=== PATIENT | female | born 1950 | race Caucasian/White ===

== ENCOUNTER 2018-07-24 19:24 | Inpatient (IN) | payer OTHER, MEDICARE ==
[2018-07-24] MEDS ORDERED: ASPIRIN 325 MG TABLET PO ONE (19:39)
--- NOTE | 2018-07-24 19:40 | PDOC ---
Rapid Medical Evaluation Time Seen by Provider: 07/24/18 19:33 Medical Evaluation: Allergies Allergy/AdvReac Type Severity Reaction Status Date / Time No Known Allergies Allergy Verified 08/26/14 09:07 07/24/18 19:36 Pt presents for midsternal chest pain starting 15 minutes ago. Pt reports being less mobile d/t a boot on her foot. Exam: RRR, S1S2 present. no murmur; epigastric discomfort Orders: Labs, EKG, Aspirin, IV Pt to proceed to ED for further evaluation Discharge Disposition - Diagnosis Chest pain - Referrals - Patient Instructions - Post Discharge Activity
[2018-07-24 20:04] LABS: BASO % 0.5 % (0-2.0); HEMOGLOBIN 15.8 GM/dL (10.7-15.3); LYMPH % 32.4 % (8-40); MCH 32.8 pg (25.7-33.7); MCHC 34.3 g/dl (32.0-36.0); MEAN CELL VOLUME 95.5 fl (80-96); MEAN PLT VOLUME 10.5 fl (7.5-11.1); MONO % 7.5 % (3.8-10.2); NEUT % 56.6 % (42.8-82.8); PLATELET COUNT 179 K/MM3 (134-434); RBC 4.82 M/mm3 (3.60-5.2); RDW 13.6 % (11.6-15.6); WHITE BLOOD COUNT 7.2 K/mm3 (4.0-10.0)
[2018-07-24 20:15] LABS: INR 0.94 (0.83-1.09); PROTHROMBIN TIME (PATIENT) 11.1 SEC (9.7-13.0)
[2018-07-24] MEDS ORDERED: ASPIRIN 325 MG TABLET ONE (20:32)
--- NOTE | 2018-07-24 20:55 | PDOC ---
History of Present Illness - General Chief Complaint: Chest Pain Stated Complaint: CHEST PAIN Time Seen by Provider: 07/24/18 19:33 - History of Present Illness Initial Comments: 67 year old female with PMH of HLD and breast cancer (16 years in remission s/p radiation and lumpectomy, mammography negative one year prior) presenting with sudden onset central sharp chest pain, worse with movement, radiation to the left shoulder and co-presented with diaphoresis. The pain came on 30 minutes before the interview and had been improving by the time I interviewed her. She denies any nausea, vomiting, diarrhea, or other symptoms. 07/24/18 20:32 Past History - Past Medical History Allergies/Adverse Reactions: Allergies Allergy/AdvReac Type Severity Reaction Status Date / Time No Known Allergies Allergy Verified 08/26/14 09:07 Home Medications: Ambulatory Orders Atorvastatin Ca [Lipitor] 20 mg PO HS 07/09/13 Cancer: Yes (BREAST CA IN REMISSION OF 2001) - Surgical History Abdominal Surgery: Yes Appendectomy: Yes - Suicide/Smoking/Psychosocial Hx Smoking History: Never smoked Have you smoked in the past 12 months: No Hx Alcohol Use: Yes (Social) Drug/Substance Use Hx: No Substance Use Type: None Review of Systems - Review of Systems Constitutional: No: Chills, Diaphoresis, Fever, Loss of Appetite, Malaise HEENTM: No: Blurred Vision, Tearing, Recent change in vision Respiratory: No: Cough, Shortness of Breath, SOB with Exertion Cardiac (ROS): Yes: Chest Pain. No: Irregular Heart Rate, Lightheadedness ABD/GI: No: Diarrhea, Nausea : No: Dysuria, Discharge Musculoskeletal: No: Back Pain, Joint Pain Integumentary: No: Bruising, Change in Color Neurological: No: Headache, Numbness, Paresthesia Psychiatric: No: Anxiety, Depression, Stressors Endocrine: No: Flushing, Intolerance to Cold Hematologic/Lymphatic: No: Blood Clots, Easy Bleeding, Easy Bruising *Physical Exam - Vital Signs Last Vital Signs Temp Pulse Resp BP Pulse Ox 98.2 F 92 H 20 121/88 100 07/24/18 19:34 07/24/18 19:34 07/24/18 19:34 07/24/18 19:34 07/24/18 19:34 - Physical Exam General Appearance: Yes: Nourished, Appropriately Dressed. No: Apparent Distress HEENT: positive: EOMI, JEANE, Normal ENT Inspection, Normal Voice Neck: positive: Trachea midline, Normal Thyroid, Supple. negative: Tender, Rigid Respiratory/Chest: positive: Chest Tender, Lungs Clear, Normal Breath Sounds. negative: Respiratory Distress, Accessory Muscle Use Cardiovascular: positive: Regular Rhythm, Regular Rate Gastrointestinal/Abdominal: positive: Normal Bowel Sounds, Flat, Soft. negative : Tender Lymphatic: negative: Adenopathy, Tenderness Musculoskeletal: positive: Normal Inspection. negative: CVA Tenderness Extremity: positive: Normal Capillary Refill, Normal Inspection, Normal Range of Motion. negative: Tender Integumentary: positive: Normal Color, Dry, Warm Neurologic: positive: Fully Oriented, Alert, Normal Mood/Affect, Normal Response , Motor Strength 5/5 Moderate Sedation - Procedure Monitoring Vital Signs: Procedure Monitoring Vital Signs Temperature 98.2 F 07/24/18 19:34 Pulse Rate 92 H 07/24/18 19:34 Respiratory Rate 20 07/24/18 19:34 Blood Pressure 121/88 07/24/18 19:34 O2 Sat by Pulse Oximetry (%) 100 07/24/18 19:34 Heart Score/ECG Review - History History: Moderately suspicious - Electrocardiogram EKG: Normal - Age Age: >/= 65 - Risk Factors Risk Factors Heart Score: Yes Hx Hypercholesterolemia Based on the list above the patient has:: 1-2 risk factors - Troponin Troponin: </= normal limit - Score Heart Score - Total: 4 ED Treatment Course - LABORATORY CBC & Chemistry Diagram: 07/24/18 19:45 07/24/18 19:45 - ADDITIONAL ORDERS Additional order review: Laboratory Results 07/24/18 19:45 PT with INR 11.10 INR 0.94 07/24/18 19:45 RBC 4.82 MCV 95.5 MCHC 34.3 RDW 13.6 MPV 10.5 Neutrophils % 56.6 Lymphocytes % 32.4 Monocytes % 7.5 Eosinophils % 3.0 Basophils % 0.5 Medical Decision Making - Medical Decision Making 67 year odl with acute onset chest pain., Heart score of 4. EKG demonstrating rate 85, PR142, QRS 92, QTc 473, normal axis, no ST or T wave changes, troponin negative, CBC WNL, but chemistry pending. Given ASA and signed otu to Dr. Bacon pending admission. 07/24/18 22:34 *DC/Admit/Observation/Transfer Diagnosis at time of Disposition: Chest pain - Referrals Referrals: Alexandre Ford MD [Primary Care Provider] - - Patient Instructions - Post Discharge Activity
[2018-07-24 20:59] LABS: URINE APPEARANCE CLEAR; URINE BILIRUBIN NEGATIVE (<2.0 mg/dL); URINE COLOR STRAW; URINE GLUCOSE (UA) NEGATIVE (NEGATIVE); URINE KETONE NEGATIVE (NEGATIVE); URINE LEUK ESTERASE TRACE (NEGATIVE); URINE NITRITE NEGATIVE (NEGATIVE); URINE PROTEIN NEGATIVE (NEGATIVE); URINE UROBILINOGEN NEGATIVE mg/dL (0.2-1.0)
--- NOTE | 2018-07-24 22:23 | PDOC ---
*Physical Exam - Vital Signs Last Vital Signs Temp Pulse Resp BP Pulse Ox 98.2 F 79 20 141/78 100 07/24/18 19:34 07/24/18 21:03 07/24/18 21:03 07/24/18 21:03 07/24/18 21:03 ED Treatment Course - LABORATORY CBC & Chemistry Diagram: 07/24/18 19:45 07/24/18 19:45 - ADDITIONAL ORDERS Additional order review: Laboratory Results 07/24/18 07/24/18 07/24/18 20:51 19:45 19:45 PT with INR 11.10 INR 0.94 Sodium Cancelled Potassium Cancelled Chloride Cancelled Carbon Dioxide Cancelled Anion Gap Cancelled BUN Cancelled Creatinine Cancelled Creat Clearance w eGFR Cancelled Random Glucose Cancelled Calcium Cancelled Total Bilirubin Cancelled AST Cancelled ALT Cancelled Alkaline Phosphatase Cancelled Creatine Kinase Creatine Kinase Index CK-MB (CK-2) Troponin I Total Protein Cancelled Albumin Cancelled Lipase Urine Color Straw Urine Appearance Clear Urine pH 9.0 H Ur Specific [place] 1.010 Urine Protein Negative Urine Glucose (UA) Negative Urine Ketones Negative Urine Blood Negative Urine Nitrite Negative Urine Bilirubin Negative Urine Urobilinogen Negative Ur Leukocyte Esterase Trace Urine WBC (Auto) 5 Urine RBC (Auto) 1 07/24/18 07/24/18 19:40 19:40 PT with INR INR Sodium Potassium Chloride Carbon Dioxide Anion Gap BUN Creatinine Creat Clearance w eGFR Random Glucose Calcium Total Bilirubin AST ALT Alkaline Phosphatase Creatine Kinase 180 Creatine Kinase Index 0.6 CK-MB (CK-2) 1.2 Troponin I < 0.02 Total Protein Albumin Lipase 363 Urine Color Urine Appearance Urine pH Ur Specific [place] Urine Protein Urine Glucose (UA) Urine Ketones Urine Blood Urine Nitrite Urine Bilirubin Urine Urobilinogen Ur Leukocyte Esterase Urine WBC (Auto) Urine RBC (Auto) 07/24/18 19:45 RBC 4.82 MCV 95.5 MCHC 34.3 RDW 13.6 MPV 10.5 Neutrophils % 56.6 Lymphocytes % 32.4 Monocytes % 7.5 Eosinophils % 3.0 Basophils % 0.5 - Medications Given in the ED: ED Medications Discontinued Medications Generic Name Dose Route Start Last Admin Trade Name Freq PRN Reason Stop Dose Admin Aspirin 325 mg 07/24/18 19:39 07/24/18 20:00 Asa - PO 07/24/18 19:40 325 mg ONCE ONE Administration Medical Decision Making - Medical Decision Making 07/24/18 22:22 The patient was signed out to me by Dr. Duncan, day team. The patient is a 67F with a PMH of HLD who presents with acute onset CP concerning for NC. CMP hemolyzed. Will resend. PCP is Alexandre Ford. 07/24/18 23:[address] Guzman for obs tele admission. *DC/Admit/Observation/Transfer Diagnosis at time of Disposition: Chest pain Qualifiers: Chest pain type: unspecified Qualified Code(s): R07.9 - Chest pain, unspecified - Discharge Dispostion Condition at time of disposition: Guarded Decision to Admit order: Yes - Referrals Referrals: Alexandre Ford MD [Primary Care Provider] - - Patient Instructions - Post Discharge Activity
--- NOTE | 2018-07-24 22:33 | PDOC ---
Attending Attestation - HPI HPI: 07/24/18 22:35 The patient is a 67 year old female with a significant past medical history of hyperlipidemia and breast ca (remission est. 2002) who resents to the emergency department with chest pain for a few hours. The patient states that she began to experience a sudden onset of central chest pain about 30 minutes prior to arrival to the ED. she states that her chest pain radiates to her left shoulder. She denies any other symptoms or complaints. Documentation prepared by Bruce Locke, acting as medical technologist clinical for Kendy Guevara MD. <Bruce Locke - Last Filed: 07/24/18 22:35> - Resident Resident Name: Brittney Duncan - ED Attending Attestation I have performed the following: I have examined & evaluated the patient, The case was reviewed & discussed with the resident, I agree w/resident's findings & plan, Exceptions are as noted - Physicial Exam PE: 07/25/18 02:39 wnwd 67 yo female with chest pain,diaphoresis that resolved. The pain did radiate to her shoulder head ncat neck supple lungs cta b/l cvs [id number] abd soft,nontender ext no edema,no clubbing skin warm and dry no cva tenderness neuro axox3,no gross focal neuro deficits 07/25/18 02:40 - Medical Decision Making 07/25/18 02:41 imp chest pain,will admit for OBS tele r/o SC <Kendy Guevara - Last Filed: 07/25/18 02:42>
--- NOTE | 2018-07-24 23:00 | PN ---
Teaching Attending Note Name of Resident: Luis Guzman ATTENDING PHYSICIAN STATEMENT I saw and evaluated the patient. I reviewed the resident's note and discussed the case with the resident. I agree with the resident's findings and plan as documented. SUBJECTIVE: Patient is a 67 year old woman with a PMH of hyperlipidemia and breast ca ( remission est. 2001) who resents to the ER with chest pain for a few hours. The patient states that she began to experience a sudden onset of central chest pain about 30 minutes prior to arrival to the ED. she states that her chest pain radiates to her left shoulder. She denies nausea, vomiting, headache, dysuria or abdominal pain. OBJECTIVE: Alert Vital Signs Period Temp Pulse Resp BP Sys/[place] Pulse Ox Last 24 Hr 98.2 F 79-92 20-20 121-141/78-88 100-100 HEENT: No Jaundice, eye redness or discharge, PERRLA, EOMI. Normocephalic, atraumatic. External ears are normal and hearing is grossly intact. No nasal discharge. Neck: Supple, nontender. No palpable adenopathy or thyromegaly. No JVD Chest: Good effort. Clear to auscultation and percussion. Heart: Regular. No S3, rub or murmur Abdomen: Not distended, soft, nontender and no HSM. No rebound or guarding. Normoactive bowel sounds. Ext: Peripheral pulses intact. No leg edema. Skin: Warm and dry. No petechiae, rash or ecchymosis. Neuro: Alert. Oriented x3. CN 2-12 grossly intact. Sensation grossly intact in all four extremities and DTR are symmetric. Home Medications Medication Instructions Recorded Atorvastatin Ca [Lipitor] 20 mg PO HS 07/09/13 Abnormal Lab Results 07/24/18 07/24/18 19:45 20:51 Hgb 15.8 H Hct 46.0 H Urine pH 9.0 H ASSESSMENT AND PLAN: 1. Chest pain - Pain is atypical. No acute ST-T wave changes on CXR and initial troponin is negative. Will admit to telemetry to rule out ACS. Get CXR, fasting lipid profile and ECHO. Consult cardiology - patient reports a negative stress test 2 years ago but does not remember why stress test was done. 2. DVT prophylaxis - Lovenox 40 mg SQ q 24 hours. 3. Advance directives - Full code
--- NOTE | 2018-07-24 23:41 | HP ---
CHIEF COMPLAINT: Chest pain PCP: Dr. Logan Holt cards HISTORY OF PRESENT ILLNESS: The patient is a 67 yo f w/ PMH HLD, breast Ca who comes into the ed c/o a 1 day hx of chest pain. The patient states that she was painting her nails when she experienced an acute onset of sharp chest pain and pressure. This pressure was located in the center of her chest and did not radiate. This symptom was associated with diaphoresis and flushing. Patient denies any exacerbating factors and states that her ssx improved after she was given ASA in the ED. The pain is mildly reproducible on palpation. The patient has never had a similar episode in the past and has no other risk factors. Patient follows with Dr. Holt as an outpatient and has had both a stress test and an echo approx. 1-2 years ago, both of which were unremarkable per her. Patient denies left arm pain , SOB, palpitations, abdominal pain, fevers or chills. ER course was notable for: (1) trop negative x1 (2) EKG showing NSR (3) Recent Travel: none PAST MEDICAL HISTORY: Breast cancer s/p radiation and lumpectomy, 16 years in remission PAST SURGICAL HISTORY: Right lumpectomy appendectomy Social History: Smoking: denies Alcohol: socially Drugs: denies Family History: Mother from complications related to HTN Grandfather from [place], age unknown Allergies No Known Allergies Allergy (Verified 08/26/14 09:07) HOME MEDICATIONS: Home Medications Medication Instructions Recorded Atorvastatin Ca [Lipitor] 20 mg PO HS 07/09/13 REVIEW OF SYSTEMS CONSTITUTIONAL: Absent: fever, chills, diaphoresis, generalized weakness, malaise, loss of appetite, weight change HEENT: Absent: rhinorrhea, nasal congestion, throat pain, throat swelling, difficulty swallowing, mouth swelling, ear pain, eye pain, visual changes CARDIOVASCULAR: Absent: syncope, palpitations, irregular heart rate, lightheadedness, peripheral edema RESPIRATORY: Absent: cough, shortness of breath, dyspnea with exertion, orthopnea, wheezing, stridor, hemoptysis GASTROINTESTINAL: Absent: abdominal pain, abdominal distension, nausea, vomiting, diarrhea, constipation, melena, hematochezia GENITOURINARY: Absent: dysuria, frequency, urgency, hesitancy, hematuria, flank pain, genital pain MUSCULOSKELETAL: Absent: myalgia, arthralgia, joint swelling, back pain, neck pain SKIN: Absent: rash, itching, pallor HEMATOLOGIC/IMMUNOLOGIC: Absent: easy bleeding, easy bruising, lymphadenopathy, frequent infections ENDOCRINE: Absent: unexplained weight gain, unexplained weight loss, heat intolerance, cold intolerance NEUROLOGIC: Absent: headache, focal weakness or paresthesias, dizziness, unsteady gait, seizure, mental status changes, bladder or bowel incontinence PSYCHIATRIC: Absent: anxiety, depression, suicidal or homicidal ideation, hallucinations. PHYSICAL EXAMINATION Vital Signs - 24 hr 07/24/18 07/24/18 07/24/18 19:34 20:00 21:03 Temperature 98.2 F Pulse Rate 92 H Pulse Rate [ 79 Apical] Respiratory 20 20 Rate Blood Pressure 121/88 Blood Pressure 141/78 [Left Arm] O2 Sat by Pulse 100 100 100 Oximetry (%) 07/24/18 23:39 Temperature 98.1 F Pulse Rate Pulse Rate [ 87 Apical] Respiratory 20 Rate Blood Pressure Blood Pressure 138/72 [Left Arm] O2 Sat by Pulse 100 Oximetry (%) GENERAL: Awake, alert, and fully oriented, in no acute distress. HEAD: Normal with no signs of trauma. NECK: Normal range of motion, supple without lymphadenopathy, JVD, or masses. LUNGS: Breath sounds equal, clear to auscultation bilaterally. No wheezes, and no crackles. No accessory muscle use. HEART: Regular rate and rhythm, normal S1 and S2 without murmur, rub or gallop. ABDOMEN: Soft, nontender, not distended, normoactive bowel sounds, no guarding, no rebound, no masses. No hepatomegaly or splenomegaly. LOWER EXTREMITIES: 2+ pulses, warm, well-perfused. No calf tenderness. No peripheral edema. NEUROLOGICAL: Cranial nerves II-X intact. Normal speech. SKIN: Warm, dry, normal turgor, no rashes or lesions noted, normal capillary refill. Laboratory Results - last 24 hr 07/24/18 07/24/18 07/24/18 19:40 19:40 19:45 WBC 7.2 RBC 4.82 Hgb 15.8 H Hct 46.0 H MCV 95.5 MCH 32.8 MCHC 34.3 RDW 13.6 Plt Count 179 MPV 10.5 Absolute Neuts (auto) 4.1 Neutrophils % 56.6 Lymphocytes % 32.4 Monocytes % 7.5 Eosinophils % 3.0 Basophils % 0.5 Nucleated RBC % 0 PT with INR INR Sodium Potassium Chloride Carbon Dioxide Anion Gap BUN Creatinine Creat Clearance w eGFR Random Glucose Calcium Total Bilirubin AST ALT Alkaline Phosphatase Creatine Kinase 180 Creatine Kinase Index 0.6 CK-MB (CK-2) 1.2 Troponin I < 0.02 Total Protein Albumin Lipase 363 Urine Color Urine Appearance Urine pH Ur Specific [place] [employer] Urine Protein Urine Glucose (UA) Urine Ketones Urine Blood Urine Nitrite Urine Bilirubin Urine Urobilinogen Ur Leukocyte Esterase Urine WBC (Auto) Urine RBC (Auto) 07/24/18 07/24/18 07/24/18 19:45 19:45 20:51 WBC RBC Hgb Hct MCV MCH MCHC RDW Plt Count MPV Absolute Neuts (auto) Neutrophils % Lymphocytes % Monocytes % Eosinophils % Basophils % Nucleated RBC % PT with INR 11.10 INR 0.94 Sodium Cancelled Potassium Cancelled Chloride Cancelled Carbon Dioxide Cancelled Anion Gap Cancelled BUN Cancelled Creatinine Cancelled Creat Clearance w eGFR Cancelled Random Glucose Cancelled Calcium Cancelled Total Bilirubin Cancelled AST Cancelled ALT Cancelled Alkaline Phosphatase Cancelled Creatine Kinase Creatine Kinase Index CK-MB (CK-2) Troponin I Total Protein Cancelled Albumin Cancelled Lipase Urine Color Straw Urine Appearance Clear Urine pH 9.0 H Ur Specific [employer] 1.010 Urine Protein Negative Urine Glucose (UA) Negative Urine Ketones Negative Urine Blood Negative Urine Nitrite Negative Urine Bilirubin Negative Urine Urobilinogen Negative Ur Leukocyte Esterase Trace Urine WBC (Auto) 5 Urine RBC (Auto) 1 ASSESSMENT/PLAN: The patient is a 67 yo f w/ PMH Breast Ca and HLD who comes in c/o substernal chets pain for 1 day. #Chest pain possibly 2/2 muscular strain r/o ACS -Initial EKG, Trop negatie in ED -rpt trop q6h, rpt EKG w/ second trop -s/p ASA 325 in ED -fasting lipids in AM -Echo in AM -CXR to further eval pain #elevated BP possibly 2/2 pain/ stress of hospitalization vs HTN -monitor BP overnight and into the AM -will begin antihypertensives if BP continues to be elevated. #FEN -no fluids indicated -lytes WNL -sodium controlled, fat controlled diet #HLD -c/w home Lipitor 20 HS #Prophy -SCDs #Dispo -observe on telemetry to r/o ACS Visit type - Emergency Visit Emergency Visit: Yes ED Registration Date: 07/24/18 Care time: The patient presented to the Emergency Department on the above date and was hospitalized for further evaluation of their emergent condition. - New Patient This patient is new to me today: Yes Date on this admission: 07/25/18 - Critical Care Critical Care patient: No
[2018-07-24 23:55] LABS: ALBUMIN 3.4 g/dl (3.4-5.0); ALK PHOS 95 U/L (45-117); ANION GAP 6 MMOL/L (8-16); BILIRUBIN,TOTAL 0.5 mg/dL (0.2-1); BLOOD UREA NITROGEN 11 mg/dL (7-18); CALCIUM 8.5 mg/dL (8.5-10.1); CHLORIDE 106 mmol/L (98-107); CO2 30 mmol/L (21-32); CREATININE 0.7 mg/dL (0.55-1.3); GLUCOSE,RANDOM 123 mg/dL (74-106); POTASSIUM 3.5 mmol/L (3.5-5.1); SGOT/AST 20 U/L (15-37); SGPT/ALT 24 U/L (13-61); SODIUM 142 mmol/L (136-145); TOT PROT 6.4 g/dl (6.4-8.2)
[2018-07-25 01:00] VITALS: BMI 23.5
[2018-07-25] MEDS ORDERED: METOPROLOL TARTRATE 25 MG TABLET (FP) PO ONE (02:43)
[2018-07-25] MEDS ORDERED: ATORVASTATIN CA 40 MG TABLET (FP) PO ONE (02:44)
[2018-07-25] MEDS ORDERED: MELATONIN 5 MG TABLETS PO PRN (02:46)
[2018-07-25 07:58] LABS: HEMOGLOBIN 14.8 GM/dL (10.7-15.3); MCH 33.5 pg (25.7-33.7); MCHC 35.1 g/dl (32.0-36.0); MEAN CELL VOLUME 95.4 fl (80-96); MEAN PLT VOLUME 9.6 fl (7.5-11.1); PLATELET COUNT 147 K/MM3 (134-434); RBC 4.41 M/mm3 (3.60-5.2); RDW 13.8 % (11.6-15.6); WHITE BLOOD COUNT 5.3 K/mm3 (4.0-10.0)
[2018-07-25 08:15] LABS: INR 0.97 (0.83-1.09); PROTHROMBIN TIME (PATIENT) 11.5 SEC (9.7-13.0)
[2018-07-25 08:18] LABS: ACTIVATED PTT 24.9 SECONDS (25.2-36.5)
[2018-07-25] MEDS: METOPROLOL TARTRATE 25 MG TABLET (FP) PO SCH ×3 (09:48→18:01)
[2018-07-25] MEDS ORDERED: ASPIRIN COATED 81 MG TABLET.EC PO SCH (10:00)
[2018-07-25 10:27] LABS: ANION GAP 8 MMOL/L (8-16); BLOOD UREA NITROGEN 9 mg/dL (7-18); CALCIUM 8.8 mg/dL (8.5-10.1); CHLORIDE 107 mmol/L (98-107); CHOLESTEROL 167 mg/dL (50-200); CO2 27 mmol/L (21-32); CREATININE 0.6 mg/dL (0.55-1.3); GLUCOSE,RANDOM 86 mg/dL (74-106); HDL CHOLESTEROL 79 mg/dL (40-60); PHOSPHOROUS 3.9 mg/dL (2.5-4.9); POTASSIUM 3.8 mmol/L (3.5-5.1); SODIUM 142 mmol/L (136-145); TRIGLYCERIDES 84 mg/dL (0-150)
--- NOTE | 2018-07-25 11:25 | CON.CARD ---
Consult Consult Specialty:: Cardiology Referred by:: Efraín Reason for Consultation:: NSTEMI - History of Present Illness Chief Complaint: chest pain History of Present Illness: 67F h/o HLD, breast cancer p/w chest pain at rest. Located center of chest, nonradiating, felt sharp pain and also pressure, with diaphoresis and flushing. Improved after getting aspirin in ER. Sees Dr. Holt for cardio. Received aspirin, lipitor, lopressor. No chest pain currently. no sob, palps, dizziness - Past Medical History Cardio/Vascular: Yes: Hyperlipdemia - Alcohol/Substance Use Hx Alcohol Use: Yes (Social) - Smoking History Smoking history: Never smoked Have you smoked in the past 12 months: No Home Medications - Allergies Allergies/Adverse Reactions: Allergies Allergy/AdvReac Type Severity Reaction Status Date / Time No Known Allergies Allergy Verified 08/26/14 09:07 - Home Medications Home Medications: Ambulatory Orders Atorvastatin Ca [Lipitor] 20 mg PO HS 07/09/13 Family Disease History - Family Disease History Family Disease History: CA: Father (CRC 70's ), Mother (bilateral breast ca 61 and 70's 80's) Review of Systems - Review of Systems Constitutional: reports: No Symptoms Eyes: reports: No Symptoms HENT: reports: No Symptoms Neck: reports: No Symptoms Cardiovascular: reports: No Symptoms Respiratory: reports: No Symptoms Gastrointestinal: reports: No Symptoms Genitourinary: reports: No Symptoms Musculoskeletal: reports: No Symptoms Integumentary: reports: No Symptoms Neurological: reports: No Symptoms Endocrine: reports: No Symptoms Hematology/Lymphatic: reports: No Symptoms Psychiatric: reports: No Symptoms Vital Signs: Vital Signs Temperature 98.0 F 07/25/18 10:00 Pulse Rate 57 L 07/25/18 10:00 Respiratory Rate 18 07/25/18 10:00 Blood Pressure 123/68 07/25/18 10:00 O2 Sat by Pulse Oximetry (%) 99 07/25/18 00:20 Constitutional: Yes: Well Nourished, No Distress, Calm Eyes: Yes: Conjunctiva Clear, EOM Intact HENT: Yes: Atraumatic, Normocephalic Neck: Yes: Supple, Trachea Midline Respiratory: Yes: Regular, CTA Bilaterally Gastrointestinal: Yes: Normal Bowel Sounds, Soft Cardiovascular: Yes: Regular Rate and Rhythm JVD: No Carotid Bruit: No PMI: Non-Displaced Heart Sounds: Yes: S1, S2 Musculoskeletal: No: Back Pain Extremities: No: Cold Edema: No Peripheral Pulses WNL: Yes Peripheral Pulses: 2+ Left Doralis Pedis, 2+ Right Dorsalis Pedis Integumentary: No: Jaundice Neurological: Yes: Alert, Oriented Psychiatric: No: Agitated - Other Data Labs, Other Data: CBC, BMP 07/25/18 07:20 07/25/18 07:20 INR, PTT INR 0.97 (0.83-1.09) 07/25/18 07:20 Troponin, BNP 07/24/18 07/25/18 07/25/18 19:40 00:40 07:20 Troponin I < 0.02 0.78 H* 2.42 H* Troponin, BNP 07/24/18 07/25/18 07/25/18 19:40 00:40 07:20 Troponin I < 0.02 0.78 H* 2.42 H* Assessment/Plan EKG: sinus, nl intervals, no ischemic changes tele: sinus NSTEMI - trop neg initially now 2.4 this AM - echo pending - received aspirin 325 mg - start heparin gtt, plavix 300 mg x 1 then 75 mg daily - cont aspirin, bb - currently chest pain free - plan for transfer to [facility] for cardiac cath HLD - incresaed statin to atorvastatin 80 mg daily
--- NOTE | 2018-07-25 11:37 | EKG ---
Test Reason : Blood Pressure : / mmHG Vent. Rate : 067 BPM Atrial Rate : 067 BPM P-R Int : 154 ms QRS Dur : 100 ms QT Int : 436 ms P-R-T Axes : 059 034 043 degrees QTc Int : 460 ms NORMAL SINUS RHYTHM NORMAL ECG WHEN COMPARED WITH ECG OF 24-JUL-2018 19:30, NO SIGNIFICANT CHANGE WAS FOUND Confirmed by PENNY CONDON MD ([id number]) on 07/25/2018 11:37:06 AM Referred By: Confirmed By:PENNY CONDON MD
[2018-07-25] MEDS ORDERED: HEPARIN NA (PORCINE) 5,000 UNITS/ML 1ML VIAL IVPUSH PRN ×2 (11:38)
--- NOTE | 2018-07-25 11:38 | EKG ---
Test Reason : Blood Pressure : / mmHG Vent. Rate : 085 BPM Atrial Rate : 085 BPM P-R Int : 142 ms QRS Dur : 092 ms QT Int : 398 ms P-R-T Axes : 050 048 065 degrees QTc Int : 473 ms NORMAL SINUS RHYTHM NORMAL ECG WHEN COMPARED WITH ECG OF 30-SEP-2006 14:01, NO SIGNIFICANT CHANGE WAS FOUND Confirmed by PENNY CONDON MD ([id number]) on 07/25/2018 11:37:46 AM Referred By: Confirmed By:PENNY CONDON MD
[2018-07-25] MEDS ORDERED: HEPARIN INFUSION - 25,000 UNITS/500 ML INFUS.BAG IVPB SCH (11:45)
[2018-07-25] MEDS ORDERED: CLOPIDOGREL BISULFATE 300 MG TABLET PO ONE (12:00)
--- NOTE | 2018-07-25 14:32 | PN ---
Physical Exam: SUBJECTIVE: Patient seen and examined by me at bedside Admitted for chest pain and pressure. Currently on Heparin drip and awaiting transfer to [place] Currently offers no complaints and denies any chest pain Otherwise, patient denies any fever, chills, nausea, vomiting, abdominal pain, chest pain, palpitations, shortness of breath, dizziness, loss of consciousness , acute vision changes, diaphoresis. OBJECTIVE: Vital Signs Period Temp Pulse Resp BP Sys/Corona Pulse Ox Last 24 Hr 97.5 F-98.2 F 57-92 18-20 121-141/68-88 98-100 GENERAL: The patient is awake, alert, and fully oriented, in no acute distress. HEAD: Normal with no signs of trauma. EYES: PERRL, extraocular movements intact, sclera anicteric, conjunctiva clear. ENT: Moist mucous membranes. NECK: Trachea midline, full range of motion, supple. (-) JVD LUNGS: Breath sounds equal, clear to auscultation bilaterally, no wheezes, no crackles, no accessory muscle use. HEART: Regular rate and rhythm, normal s1 and s2 without murmur, rub or gallop. ABDOMEN: Soft, nontender, nondistended, normoactive bowel sounds, no guarding, no rebound, no hepatosplenomegaly, no masses. EXTREMITIES: No edema. NEUROLOGICAL: Cranial nerves II through XII grossly intact. Normal speech PSYCH: Normal mood, normal affect. SKIN: Warm, dry, normal turgor, no rashes or lesions noted Laboratory Results 07/25/18 07:20 07/25/18 07:20 07/24/18 07/24/18 07/25/18 19:40 19:40 00:40 Troponin I < 0.02 0.78 H* Triglycerides Cholesterol Total LDL Cholesterol HDL Cholesterol Lipase 363 07/25/18 07/25/18 07:20 07:20 Troponin I 2.42 H* Triglycerides 84 Cholesterol 167 Total LDL Cholesterol 65 HDL Cholesterol 79 H Lipase Active Medications Generic Name Dose Route Start Last Admin Trade Name Freq PRN Reason Stop Dose Admin Aspirin 81 mg 07/25/18 10:00 07/25/18 09:48 Ecotrin - PO 81 mg DAILY DARRYL Administration Atorvastatin Calcium 80 mg 07/25/18 22:00 Lipitor - PO HS DARRYL Clopidogrel Bisulfate 75 mg 07/26/18 10:00 Plavix - PO DAILY DARRYL Heparin Sodium (Porcine) 1,000 unit 07/25/18 11:38 Heparin - IVPUSH PRN PRN Heparin Heparin Sodium (Porcine) 5,000 unit 07/25/18 11:38 Heparin - IVPUSH PRN PRN Heparin Heparin Sodium/Dextrose 25,000 units in 500 mls @ 16 mls/hr 07/25/18 11:45 13:01 Heparin Infusion - IVPB 800 units/hr TITR DARRYL 16 mls/hr Administration Protocol 800 UNITS/HR Melatonin 10 mg 07/25/18 02:46 Melatonin PO ONCE PRN INSOMNIA Metoprolol Tartrate 25 mg 07/25/18 09:00 07/25/18 13:01 Lopressor - PO 25 mg Q6HPO DARRYL Administration IMAGES: Chest X-Ray (07/25/18): No acute pathology ASSESSMENT/PLAN:
--- NOTE | 2018-07-25 14:35 | ECHO ---
Name: CESAR GANT Exam:Adult Echocardiogram Study Date: 07/25/2018 10:06 AM Age: 67 yrs Reason For Study: EVALUATE HEART FUNCTION Height: 65 in Weight: 141 lb BSA: 1.7 m2 MMode/2D Measurements & Calculations IVSd: 0.85 cm EDV(Teich): 97.4 ml LVIDd: 4.6 cm ESV(Teich): 31.1 ml LVIDs: 2.9 cm LVPWd: 0.76 cm TAPSE: 1.6 cm Doppler Measurements & Calculations MV E max anselmo: 51.8 cm/sec Ao V2 max: 142.3 cm/sec MV A max anselmo: 61.2 cm/sec Ao max P.1 mmHg MV E/A: 0.85 AI P1/2t: 657.7 msec MV dec time: 0.22 sec AI max anselmo: 327.4 cm/sec LV V1 max P.1 mmHg AI max P.1 mmHg LV V1 max: 53.3 cm/sec AI dec slope: 145.8 cm/sec2 MR max anselmo: 281.0 cm/sec TR max anselmo: 155.3 cm/sec MR max P.9 mmHg TR max P.6 mmHg PI end-d anselmo: 99.9 cm/sec Med Peak E' Anselmo: 5.8 cm/sec Med E/e': 8.9 Lat Peak E' Anselmo: 9.0 cm/sec Lat E/e': 5.8 Procedure A two-dimensional transthoracic echocardiogram with color flow and Doppler was performed. The study w as technically difficult with many images being suboptimal in quality. Left Ventricle The left ventricular size, thickness and function are normal. The left ventricular ejection fraction is normal. E/A reversal consistent with but not diagnostic of poor LV compliance. Regional wall motion abnormalities cannot be excluded due to limited visualization. Right Ventricle The right ventricle is normal in size and function. Atria The left atrium is not well visualized. Right atrium not well visualized. Mitral Valve There is mild mitral valve thickening. There is no mitral valve stenosis. There is trace mitral regur gitation. Tricuspid Valve The tricuspid valve is not well visualized. There is no tricuspid stenosis. There is mild tricuspid regurgitation. Right ventricular systolic pressure is normal. Aortic Valve The aortic valve is not well visualized. No hemodynamically significant valvular aortic stenosis. Mil d aortic regurgitation. Pulmonic Valve The pulmonic valve is not well visualized. There is no pulmonic valvular stenosis. Mild pulmonic valv ular regurgitation. Great Vessels The aortic root is normal size. Pericardium/Pleura There is no pericardial effusion. Interpretation Summary The left ventricular ejection fraction is normal. E/A reversal consistent with but not diagnostic of poor LV compliance Regional wall motion abnormalities cannot be excluded due to limited visualization. The study was technically difficult with many images being suboptimal in quality. Mild aortic regurgitation. There is mild tricuspid regurgitation. Right ventricular systolic pressure is normal. MD Yohan Nascimento 07/25/2018 02:34 PM
--- NOTE | 2018-07-25 14:38 | DS ---
Physical Exam: SUBJECTIVE: Patient seen and examined by me at bedside Admitted for chest pain and pressure. Currently on Heparin drip and awaiting transfer to [place] Currently offers no complaints and denies any chest pain Otherwise, patient denies any fever, chills, nausea, vomiting, abdominal pain, chest pain, palpitations, shortness of breath, dizziness, loss of consciousness , acute vision changes, diaphoresis. OBJECTIVE: Vital Signs Period Temp Pulse Resp BP Sys/Corona Pulse Ox Last 24 Hr 97.5 F-98.2 F 57-92 18-20 121-141/68-88 98-100 PHYSICAL EXAM GENERAL: The patient is awake, alert, and fully oriented, in no acute distress. HEAD: Normal with no signs of trauma. EYES: PERRL, extraocular movements intact, sclera anicteric, conjunctiva clear. ENT: Moist mucous membranes. NECK: Trachea midline, full range of motion, supple. (-) JVD LUNGS: Breath sounds equal, clear to auscultation bilaterally, no wheezes, no crackles, no accessory muscle use. HEART: Regular rate and rhythm, normal s1 and s2 without murmur, rub or gallop. ABDOMEN: Soft, nontender, nondistended, normoactive bowel sounds, no guarding, no rebound, no hepatosplenomegaly, no masses. EXTREMITIES: No edema. NEUROLOGICAL: Cranial nerves II through XII grossly intact. Normal speech PSYCH: Normal mood, normal affect. SKIN: Warm, dry, normal turgor, no rashes or lesions noted Laboratory Results 07/25/18 07:20 07/25/18 07:20 07/24/18 07/25/18 07/25/18 19:40 00:40 07:20 Troponin I < 0.02 0.78 H* Triglycerides 84 Cholesterol 167 Total LDL Cholesterol 65 HDL Cholesterol 79 H 07/25/18 07:20 Troponin I 2.42 H* Triglycerides Cholesterol Total LDL Cholesterol HDL Cholesterol IMAGES: ECHO (07/25/18): ECHO revealed normal EF, E/A reversal consistent but not diagnostic of poor LV compliance, and limited echo study. Chest X-Ray (07/25/18): No acute pathology PRE-HOSPITAL COURSE: Patient is a 67 year old female with a PMHx of HLD, breast cancer who presented to the ED complaining of acute onset of sharp chest pain and pressure located at the center of the chest and nonradiating. Patient reported associated symptoms of diaphoresis and flushing without exacerbating factors. In the ED, patients symptoms resolved when given ASA. Patient had initial troponin level negative with EKG NSR with normal intervals no ischemic changes in the ED and then admitted to telemetry for further monitoring and management. HOSPITAL COURSE: Throughout hospitalization, patient had three troponins done with initial one negative, second one went up to 0.78 and then third one at 2.42. Cardiology evaluated patient and recommended patient be started on a heparin drip, concerning for NSTEMI. Patient received loading dose asa, loading dose plavix and started on a beta parul. Patient's chest pain improved and ECHO revealed normal EF, E/A reversal consistent but not diagnostic of poor LV compliance, and limited echo study. Patient was then recommended to be transferred to a tertiary care center for cardiac catheterization. Patient accepted to [facility] for further management. Patient and patients family all agreeable Date of Admission:07/25/18 Date of Discharge: 07/25/18 Minutes to complete discharge: 45 Discharge Summary Reason For Visit: RULED OUT FOR MYOCARDIAL INFARCTION Current Active Problems Chest pain (Acute) Condition: Guarded - Instructions Diet, Activity, Other Instructions: -Patient with chest pain, elevated troponins concerning for ACS. Transferred to [facility] for further cardiac management and likely Cardiac catheterization Referrals: Alexandre Ford MD [Primary Care Provider] - Disposition: TRANSFER ACUTE CARE/OTHER HOSP - Home Medications Comprehensive Discharge Medication List: Ambulatory Orders Aspirin Coated [Ecotrin -] 81 mg PO DAILY tablet.ec 07/25/18 Atorvastatin Ca [Lipitor] 80 mg PO HS tablet 07/25/18 Clopidogrel Bisulfate [Plavix -] 75 mg PO DAILY tablet 07/25/18 Heparin - 1,000 unit IVPUSH PRN PRN vial 07/25/18 Heparin - 5,000 unit IVPUSH PRN PRN vial 07/25/18 Melatonin 10 mg PO ONCE PRN tab 07/25/18 Metoprolol Tartrate [Lopressor -] 25 mg PO Q6HPO tablet 07/25/18 This patient is new to me today: Yes Date on this admission: 07/25/18 Emergency Visit: Yes ED Registration Date: 07/25/18 Care time: The patient presented to the Emergency Department on the above date and was hospitalized for further evaluation of their emergent condition. Critical Care patient: No - Discharge Referral Referred to [facility] Med [facility].C.: No
--- NOTE | 2018-07-25 15:48 | PN ---
Teaching Attending Note Name of Resident: Adelaide Wolf ATTENDING PHYSICIAN STATEMENT I saw and evaluated the patient. I reviewed the resident's note and discussed the case with the resident. I agree with the resident's findings and plan as documented. SUBJECTIVE: Ms Richard is without complain. No cp, sob, n/v. OBJECTIVE: Last Vital Signs Temp Pulse Resp BP Pulse Ox 36.8 C 59 L 18 127/75 98 07/25/18 14:15 07/25/18 14:15 07/25/18 14:15 07/25/18 14:15 07/25/18 07:35 Gen: nad Pulm: ctab w/o w/r/r CV: rrr w/o m/r/g Abd: +bs, s/nt/nd Ext: no c/c/e CBC, BMP 07/25/18 07:20 07/25/18 07:20 Ms Richard is a pleasant 67 year old female who came in with chest pain. She was admitted to telemetry where she developed a positive troponin. She was seen by cardiology and case was discussed. She will be placed on a heparin gtt. She will receive a plavix load and continue plavix 75mg daily. She will be placed on max dose statin. Her metoprolol will be continued. She is to be transferred to [facility] for cardiac catheterization Problem List - Problems (1) NSTEMI (non-ST elevated myocardial infarction) Code(s): I21.4 - NON-ST ELEVATION (NSTEMI) MYOCARDIAL INFARCTION
[2018-07-25 19:31] VITALS: BP 126/70; PULSE 63; TEMP 98.8
[2018-07-25] MEDS ORDERED: ATORVASTATIN CA 40 MG TABLET (FP) PO SCH ×2 (22:00)
[2018-07-25] MEDS ORDERED: ATORVASTATIN CA 20 MG TABLET (FP) PO SCH (22:00)
[2018-07-26] MEDS ORDERED: CLOPIDOGREL BISULFATE 75 MG TABLET (FP) PO SCH (10:00)
== END 2018-07-25 18:53 | disposition short-term general hospital (02) | DRG 282 ==
LOC: JER 19:24 → JERBED 20:57 → J4W 07-25 00:30 → OBSVTOIN 07-25 11:32
PROVIDERS: ADMIT Internal Medicine; ATTEND Internal Medicine
DX: I21.4 Non-ST elevation (NSTEMI) myocardial infarction (principal); Z85.3 Personal history of malignant neoplasm of breast; E78.00 Pure hypercholesterolemia, unspecified
CPT/HCPCS: 36415; 71045-TC-FY; 80048; 80053; 80061; 81003; 81015; 82550; 82553; 83690; 83721; 83735; 84100; 84484; 85025; 85027; 85610; 85730; 87086; 93005; 93010; 93306-TC; 99284-25; G0378; J1644